=== PATIENT | female | born 1950 | race Caucasian/White ===

== ENCOUNTER 2019-10-30 10:13 | Outpatient (CLI) | payer MEDICARE, SELFPAY ==
--- NOTE | 2019-10-30 10:21 | MM_ITS ---
WS: [id number] BILATERAL DIGITAL SCREENING MAMMOGRAPHY WITH CAD CLINICAL INFORMATION: SCREENING HISTORY: Screening mammogram. No current complaints. COMPARISON: TECHNIQUE: Bilateral CC and MLO views. FINDINGS: Scattered fibroglandular densities bilaterally. No suspicious focal mass, asymmetry, calcifications, or architectural distortion. No evidence of malignancy. Secretory calcifications left breast. MM/[place] [id number] IMPRESSION: BI-RADS: 2-Benign FOLLOW UP: 1 Year Follow-up Recommend return to annual screening mammography.
== END 2019-10-30 10:14 | disposition home or self-care (01) ==
LOC: RADSHAW 10:20
PROVIDERS: PCP Family Medicine; Visit Provider Obstetrics & Gynecology
DX: Z12.31 Encounter for screening mammogram for malignant neoplasm of breast (principal)
CPT/HCPCS: 77067

== ENCOUNTER 2020-04-30 00:32 | Emergency (ER) | payer MEDICARE, SELFPAY ==
[2020-04-30 00:39] VITALS: BP 168/78; PULSE 81; RESP 18; TEMP 36.8; O2SAT 97; BMI 31.1
[2020-04-30] MEDS: metoclopramide 5 mg/mL SDV 2 mL 10 MG IVP (00:59)
[2020-04-30] MEDS: diphenhydrAMINE 50 mg/mL SDV 1mL IVP (00:59)
[2020-04-30] MEDS: tetracaine 0.5% Op Soln 4 mL Btl 1 DROP EYE-LEFT (01:01)
[2020-04-30 01:07] VITALS: BP 168/76; PULSE 84; RESP 19; O2SAT 94
--- NOTE | 2020-04-30 01:22 | ED_ITS ---
HPI - Eye Problem General: Chief complaint: Eye Problems Stated complaint: Headache, drainage from eye post surgery this morn Time Seen by Provider: 04/30/20 00:36 Source: patient Mode of arrival: ambulatory Limitations: no limitations History of Present Illness: HPI Narrative: 70-year-old female who states she has a history of glaucoma. Patient states she had a procedure today for her glaucoma by Dr. Bell. She states that throughout the day she had worsening headache and pain in the eye. States headache is sharp in nature and rates it a 9 out of 10. States she did have one episode of vomiting. Denies any worsening improving factors. chief complaint: eye pain Onset (ago): hour(s) Onset description: gradual Duration: constant Location: left eye Place: home Associated symptoms: Denies fever(s), headache(s), nausea, neck pain or vomiting Review of Systems Const: Denies: fever(s), chills, body aches or change in appetite Eyes: Reports: eye discomfort; Denies: blurry vision ENMT: Denies: throat pain or dental pain Card: Denies: chest pain Resp: Denies: dyspnea GI: Denies: abdominal pain, nausea, vomiting or diarrhea : Denies: dysuria Musc: Denies: neck pain or back pain Skin/Breast: Denies: rash Neuro: Denies: headache(s) Psych: Denies: depression Rodrick/Lymph: Denies: easy bruising All/Imm: Denies: urticaria PFSH ED PFSH: Medical History (Updated 04/30/20 @ 03:42 by Radha House MD) Arthritis Had arthritic pain in the past however in the last year since exercising and changing her food symptoms have improved and she is no longer on any pain medications since 2019 Chronic hypertension Diagnosed in 2011 or 2012 and is well controlled with medication. Managed by PMD Glaucoma Status post 2 surgeries for glaucoma last in 2019 and is using eyedrops for this. No pertinent past medical history Denies diabetes, asthma, seizures, DVT/PE PCP: Dr. Castaneda Surgical History (Updated 02/06/20 @ 09:47 by Carolina Daigle MD) History of back surgery [id number]: Laminectomy, Perfomed in [place] S/P eye surgery x 2 Bilateral; 2004-performed in [place] for glaucoma per patient Bilateral-left in October 2019 and right in November [address] Bell in [place] per patient stents were placed for glaucoma S/P tubal ligation Done in 1969 by suprapubic incision as an interval procedure Family History (Updated 02/05/20 @ 11:48 by Evelyn Barker, RN) Mother Stroke Heart disease Hypertension Hyperlipidemia Father Heart disease Hypertension Hyperlipidemia Thyroid condition Brother Heart disease x 2 Hypertension x5 Diabetes Hyperlipidemia x 5 Sister Hypertension Hyperlipidemia Family/Other Breast cancer paternal aunt, diagnosed in her 70s Son Sarcoma Denies family history of Colon cancer Ovarian cancer Anesthesia complication Bleeding disorder Uterine cancer Physical Exam Const: COMMON NORMALS: no acute distress, patient oriented x3 and healthy appearing HENMT: COMMON NORMALS: normocephalic and atraumatic HEAD & SCALP: normocephalic and atraumatic Eye: COMMON NORMALS: EOMs intact bilaterally OTHER: Patient's left pupil is dilated. Does respond to light with some slight constriction Neck/C-Spine: COMMON NORMALS: full ROM and supple Chest: COMMONS NORMALS: normal inspection of the chest and normal palpation of entire chest wall Resp: COMMON NORMALS: normal respiratory effort, No retractions, No use of accessory muscles and clear to auscultation bilaterally AUSCULTATION: clear to auscultation bilaterally Cardio: COMMON NORMALS: regular rate, regular rhythm and No murmurs present (Cardio) RATE: regular rate RHYTHM: regular rhythm GI: COMMON NORMALS: Normal to inspection, nondistended, normoactive bowel sounds present, Soft to palpation, non-tender and no masses PALPATION: Yes Soft to palpation Extremity: COMMON NORMALS: normal to inspection and full ROM Neuro: COMMON NORMALS: patient oriented x3, moves all extremities and no focal motor deficits Psych: COMMON NORMALS: mental status grossly normal, Normal thought process present and cooperative THOUGHT PROCESS: Normal thought process present Skin: COMMON NORMALS: no rashes or lesions noted and no wounds GENERAL SKIN EXAM: no rashes or lesions noted Course Reevaluation(s): Reevaluation #1: Intraocular pressures measured at 55 and 56 mm per mercury. I am concerned of possible angle-closure glaucoma and I spoke to Dr. Bell of ophthalmology who recommended giving patient Diamox along with Timoptic and latanoprost along with mannitol. He wants me to recheck the intraocular pressure in 1 hour and let him know the results at that time. Time: 01:22 Reevaluation #2: Dr. Bell seen here in the ER and is evaluated the patient with slit lamp. He is can come back and check intraocular pressures as well. Time: 02:07 Vital Signs: Vital signs: Vital Signs Temperature 98.2 F 04/30/20 00:39 Pulse Rate 79 04/30/20 03:56 Respiratory Rate 16 04/30/20 03:56 Blood Pressure 151/79 04/30/20 03:56 Pulse Oximetry 93 04/30/20 03:56 MDM - Eye Problem MDM Narrative: Medical decision making narrative: Patient presents here with glaucoma. Patient is seen down the ER by Dr. Bell. He expressed some fluid to drain he had placed earlier today. Repeat pressures were 48 and 50. She feels improved. Dr. Bell feels she is stable for discharge and does not believe she has acute angle glaucoma and is can see her in his office at 8 AM. Patient is to return if she has any increase of pain. Discharge Plan Discharge Patient Disposition: Home Clinical Impression: Glaucoma Qualifiers: Glaucoma type: unspecified Laterality: left Qualified Code(s): H40.9 - Unspecified glaucoma Condition: Stable Prescriptions: New ondansetron 4 mg tablet,disintegrating 4 mg PO Q6H PRN (Reason: nausea and vomiting) Qty: 14 RF: 0 No Action PreserVision AREDS [id number] capsule 1 cap PO BID RF: 0 hydrochlorothiazide 25 mg tablet 25 mg PO DAILY RF: 0 losartan 50 mg tablet 50 mg PO DAILY RF: 0 etodolac 200 mg capsule 100 mg PO BID PRNRF: 0 metoprolol tartrate [Lopressor] 50 mg tablet 50 mg PO DAILY RF: 0 atorvastatin 10 mg tablet 10 mg PO DAILY RF: 0 Zyrtec 10 mg capsule 10 mg PO DAILY RF: 0 fluticasone propionate [Flonase Allergy Relief] 50 mcg/actuation spray,suspension 1 spray INTRANASAL DAILY PRNRF: 0 Discharge Orders: Discharge ED (Routine); Ordered 04/30/20 Ordered By: Radha House Referrals: Sammy Bell MD [Physician] - Enzo Castaneda MD [Primary Care Provider] - Discharge Diet: Advance as tolerated Discharge Activity: Resume usual activity Patient Instructions: Glaucoma (ED) Coding Level of Care Code ED Appliance Installer for Chg Fwd Exam Comprehensive
[2020-04-30] MEDS: ondansetron 2 mg/ML SDV 2 mL 4 MG IVP (01:28)
--- NOTE | 2020-04-30 01:32 | PC.NURSE ---
visual acuity on patient performed by nurse. left eye undeterminable (only could see white board). right eye 20/200. both eyes 20/100.
[2020-04-30] MEDS: acetaZOLAMIDE 250 mg Tablet 500 MG PO (01:50)
[2020-04-30] MEDS: mannitol 12.5 gm/50 mL (25%) SDV IV (01:55)
[2020-04-30] MEDS: latanoprost 0.005% Op Soln 2.5 mL Btl 1 DROP EYE-LEFT (02:00)
[2020-04-30] MEDS: timolol 0.5% Op Soln 5 mL Btl 1 DROP EYE-RIGHT (02:07)
[2020-04-30 02:09] VITALS: PULSE 84; RESP 16; O2SAT 94
[2020-04-30 03:25] VITALS: BP 142/72; PULSE 78; RESP 16; O2SAT 94
--- NOTE | 2020-04-30 03:49 | P.CONIM_ITS ---
Providers/Reason For Consult Consulting Physican/Specialty*: PAMELA GURROLA OPHTHALMOLGY Reason for Consult*: ELEVATED IOP LEFT EYE Primary Care Provider: Enzo Castaneda MD History of Present Illness History of Present Illness Priti Shelton is a 70 year old female who had a revision of a Xen stent left eye yesterday, The procedure was uncomplicated and the IOP was 21 hours post op. She developed nausea and headache which caused her visit to the ER Meds/Allergies Home Medications and Allergies Home Medications Medication Instructions Recorded Confirmed Last Taken Type atorvastatin 10 mg tablet 10 mg PO DAILY 02/05/20 02/05/20 Unknown History cetirizine 10 mg capsule 10 mg PO DAILY cap 02/05/20 02/05/20 Unknown History etodolac 200 mg capsule 100 mg PO BID PRN cap 02/05/20 02/05/20 Unknown History fluticasone propionate 50 1 spray INTRANASAL DAILY PRN 02/05/20 02/05/20 Unknown History mcg/actuation nasal spray,suspension hydrochlorothiazide 25 mg tablet 25 mg PO DAILY 02/05/20 02/05/20 Unknown Hi story losartan 50 mg tablet 50 mg PO DAILY 02/05/20 02/05/20 Unknown History metoprolol tartrate 50 mg tablet 50 mg PO DAILY 02/05/20 02/05/20 Unknown History vitamins A,C,X-jggm-yjczqy 14,320 1 cap PO BID 02/05/20 02/05/20 Unknown History unit-226 mg-200 unit capsule ondansetron 4 mg PO Q6H PRN #14 tab 04/30/20 Unknown Rx Allergies Allergy/AdvReac Type Severity Reaction Status Date / Time lisinopril Allergy ADR-Cough Verified 04/30/20 00:39 brimonidine AdvReac palpitation, Verified 02/05/20 11:42 decreased blood pressure eye drop AdvReac eye Uncoded 02/05/20 11:42 swelling, rapid heart rate Current Medications Current Medications Generic Name Dose Route Start Last Admin Trade Name Freq PRN Reason Stop Dose Admin Mannitol 20 gm 04/30/20 01:30 04/30/20 01:55 Mannitol 12.5 Gm/50 Ml (25%) Sdv IV 20 gm ONCE FARZAD Administration PFSH Acute PFSH: Medical History (Updated 04/30/20 @ 03:42 by Radha House MD) Arthritis Had arthritic pain in the past however in the last year since exercising and changing her food symptoms have improved and she is no longer on any pain medications since 2019 Chronic hypertension Diagnosed in 2011 or 2012 and is well controlled with medication. Managed by PMD Glaucoma Status post 2 surgeries for glaucoma last in 2019 and is using eyedrops for this. No pertinent past medical history Denies diabetes, asthma, seizures, DVT/PE PCP: Dr. Castaneda Surgical History (Updated 02/06/20 @ 09:47 by Carolina Daigle MD) History of back surgery [id number]: Laminectomy, Perfomed in [place] S/P eye surgery x 2 Bilateral; 2004-performed in [place] for glaucoma per patient Bilateral-left in October 2019 and right in November [address] Gurrola in [place] per patient stents were placed for glaucoma S/P tubal ligation Done in 1969 by suprapubic incision as an interval procedure Family History (Updated 02/05/20 @ 11:48 by Evelyn Barker RN) Mother Stroke Heart disease Hypertension Hyperlipidemia Father Heart disease Hypertension Hyperlipidemia Thyroid condition Brother Heart disease x 2 Hypertension x5 Diabetes Hyperlipidemia x 5 Sister Hypertension Hyperlipidemia Family/Other Breast cancer paternal aunt, diagnosed in her 70s Son Sarcoma Denies family history of Colon cancer Ovarian cancer Anesthesia complication Bleeding disorder Uterine cancer Vitals/I&O/Wt Last Vital Signs Temp 98.2 F 04/30/20 00:39 Pulse 78 04/30/20 03:25 Resp 16 04/30/20 03:25 BP 142/72 04/30/20 03:25 Pulse Ox 94 04/30/20 03:25 Weight last 48 hrs Weight 170 lb Physical Exam Narrative: EXAM NARRATIVE: When I arrived she was no longer nauseated, but was still suffering from slight headache. She had been given diamox and was receiving mannitol IV. Latanoprost and Timotic had been ordered. Eye: OTHER: the conjunctival flap was intact but not significantly elevated. There was minimal injection, but the cornea was diffusely edematous. The chamber was similarly filled as the right eye with minimal pupillary reaction OU. Slit lamp showed the Xen to be in proper position inside and outside of the eye without pupillary irregularity suggestive of iris incarceration internally. Attempts to massage the conjunctiva from the external stent aperature were performed with a cotton tipped applicator. IOP measured fell 15 mm within 10 minutes. Consult Attestations Time Spent in Patient Care: Greater than 35 minutes once the IOP was falling it was jointly decided to allow her to return home with Zofran to be used prn, continue with the timoptic, and follow up in my office in 5 hours for repeated IOP check and decision making. Coding Level of Care Code Acute Shading Painter for Javier Paige
[2020-04-30 03:53] VITALS: BP 151/79; PULSE 80; RESP 16; O2SAT 94
[2020-04-30 03:56] VITALS: BP 151/79; PULSE 79; RESP 16; O2SAT 93
== END 2020-04-30 03:57 | disposition home or self-care (01) ==
PROVIDERS: Emergency Provider Emergency Medicine; PCP Family Medicine
DX: H40.9 Unspecified glaucoma (principal); I10 Essential (primary) hypertension
CPT/HCPCS: 12345; 96374; 96375; 99283; J1200; J2150; J2405; J2765

== ENCOUNTER 2020-11-26 07:45 | Outpatient (CLI) | payer MEDICARE, SELFPAY ==
--- NOTE | 2020-11-26 07:56 | MM_ITS ---
WS: [id number] BILATERAL DIGITAL SCREENING MAMMOGRAM WITH CAD CLINICAL INFORMATION: SCREENING HISTORY: Screening mammogram. No current complaints. COMPARISON: October 30, 2019 TECHNIQUE: Bilateral CC and MLO. FINDINGS: The breast are composed of extremely dense tissue, which can limit the detection of small underlying mass lesions. A few punctate and lucent centered calcifications. Secretory calcifications. No suspici ous focal mass, asymmetry, calcifications, or architectural distortion. No evidence of malignancy. MM/[place] [id number] IMPRESSION: BI-RADS: 2-Benign FOLLOW UP: 1 Year Follow-up Recommend return to annual screening mammography.
== END 2020-11-26 07:46 | disposition home or self-care (01) ==
LOC: RADSHAW 07:52
PROVIDERS: PCP Family Medicine; Visit Provider Obstetrics & Gynecology
DX: Z12.31 Encounter for screening mammogram for malignant neoplasm of breast (principal)
CPT/HCPCS: 77067

== ENCOUNTER 2021-05-16 10:00 | Outpatient (CLI) | payer MEDICARE, SELFPAY ==
--- NOTE | 2021-05-16 10:20 | XR_ITS ---
WS: [id number] Lumbar spine, 3 views, 05/16/2021 Clinical Data: LUMBAR BACK PAIN W/RADICULOPATHY Comparison: Lateral lumbar spine, 07/07/2015. Findings: There is degenerative disc narrowing at L5-S1. There is a 0.7 cm subluxation of L4 on L5. Anterior os teophyte formation from L2 through L5 is seen. There are no compression fractures. The transverse pro cesses and SI joints are intact. There is calcification in the wall of the abdominal aorta but no aneurysm. XR/XR lumbar spine 2-3V* [id number] Impression: 1. Degenerative disc narrowing at L5-S1. 2. 0.7 cm subluxation of L4 on L5. 3. 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
== END 2021-05-16 10:01 | disposition home or self-care (01) ==
PROVIDERS: PCP Family Medicine; Visit Provider Family Medicine
DX: M54.16 Radiculopathy, lumbar region (principal); S33.140A Subluxation of L4/L5 lumbar vertebra, initial encounter; M47.816 Spondylosis without myelopathy or radiculopathy, lumbar region
CPT/HCPCS: 72100

== ENCOUNTER → 2023-02-01 10:09 | Outpatient (BNVA) | payer MEDICARE, SELFPAY | PROVIDERS: PCP Family Medicine; Visit Provider Family Medicine | DX: Z51.81 Encounter for therapeutic drug level monitoring (principal); I10 Essential (primary) hypertension; R25.2 Cramp and spasm; E55.9 Vitamin D deficiency, unspecified; E53.8 Deficiency of other specified B group vitamins; R73.09 Other abnormal glucose; Z13.1 Encounter for screening for diabetes mellitus; Z78.0 Asymptomatic menopausal state; Z00.00 Encounter for general adult medical examination without abnormal findings; Z13.220 Encounter for screening for lipoid disorders | CPT/HCPCS: 80053; 80061; 82306; 82607; 83036; 83735; 85025 ==

== ENCOUNTER 2023-02-12 13:11 | Outpatient (CLI) | payer MEDICARE, SELFPAY ==
--- NOTE | 2023-02-12 | XR_ITS ---
WS: [id number] DEXA (DUAL ENERGY X-RAY ABSORPTIOMETRY) Bone mineral density was performed using a [employer] machine. HISTORY: Postmenopausal - Bone density screening COMPARISON: 10/03/2016 Lumbar spine BMD (L1-L4): 1.282 g/cm2 T score: 0.9 Z score: 2.1 Total hip BMD: Left: 1.098 g/cm2. T score: 0.7 Z score: 2.0 Right: 1.071 g/cm2. T score: 0.5 Z score: 1.8 10 year probability of a major osteoporotic fracture is 17.8%. Compared to the prior study from 10/03/2016. Lumbar spine bone mineral density has increased by 3.8%. Bilateral hips bone mineral density has decreased by 5.0%. IMPRESSION: NORMAL BONE MINERAL DENSITY based upon the WHO classification for females. Significant decrease in bone mineral density within the hips since the prior study. Significant increase in bone mineral density within the lumbar spine since the last study.
== END 2023-02-12 13:12 | disposition home or self-care (01) ==
PROVIDERS: PCP Family Medicine; Visit Provider Family Medicine
DX: Z13.820 Encounter for screening for osteoporosis (principal); Z78.0 Asymptomatic menopausal state
CPT/HCPCS: 77080

== ENCOUNTER 2023-02-20 11:06 | Outpatient (CLI) | payer MEDICARE, SELFPAY ==
--- NOTE | 2023-02-20 11:11 | MM_ITS ---
WS: [id number] BILATERAL 3D TOMOSYNTHESIS DIGITAL SCREENING MAMMOGRAPHY WITH CAD CLINICAL INFORMATION: Screening mammogram HISTORY: Screening mammogram. No current complaints. COMPARISON: 2020 TECHNIQUE: Bilateral CC and MLO views. FINDINGS: Scattered fibroglandular densities bilaterally. No suspicious focal mass, asymmetry, calcifications, or architectural distortion. No evidence of malignancy. Incidental punctate and lucent centered calci fications. Secretory calcifications. Vascular calcification. IMPRESSION: MM/[place] [id number] BI-RADS: 2-Benign FOLLOW UP: 1 Year Follow-up Recommend return to annual screening mammography.
== END 2023-02-20 11:07 | disposition home or self-care (01) ==
PROVIDERS: PCP Family Medicine; Visit Provider Family Medicine
DX: Z12.31 Encounter for screening mammogram for malignant neoplasm of breast (principal)
CPT/HCPCS: 77063; 77067

== ENCOUNTER → 2024-02-04 09:41 | Outpatient (BNVA) | payer MEDICARE, SELFPAY | PROVIDERS: PCP Family Medicine; Visit Provider Family Medicine | DX: Z51.81 Encounter for therapeutic drug level monitoring (principal); E55.9 Vitamin D deficiency, unspecified; I10 Essential (primary) hypertension; R73.09 Other abnormal glucose; E53.8 Deficiency of other specified B group vitamins | CPT/HCPCS: 80053; 80061; 82306; 82607; 83036; 85025 ==

== ENCOUNTER 2024-02-22 11:59 | Outpatient (CLI) | payer MEDICARE, SELFPAY ==
--- NOTE | 2024-02-22 12:04 | MM_ITS ---
WS: [id number] BILATERAL 3D TOMOSYNTHESIS DIGITAL SCREENING MAMMOGRAPHY WITH CAD CLINICAL INFORMATION: SCREENING HISTORY: Screening mammogram. No current complaints. COMPARISON: 2022 TECHNIQUE: Bilateral CC and MLO views. FINDINGS: Scattered fibroglandular densities bilaterally. No suspicious focal mass, asymmetry, calcifications, or architectural distortion. No evidence of malignancy. A few incidental punctate and secretory calci fications. MM/MM scr tomosynthesis [id number] IMPRESSION: DENSITY: There are scattered areas of fibroglandular density. BI-RADS: 2 - Benign. FOLLOW UP: 1 Year Follow-up Recommend return to annual screening mammography.
== END 2024-02-22 12:00 | disposition home or self-care (01) ==
LOC: RAD 12:00
PROVIDERS: PCP Family Medicine; Visit Provider Family Medicine
DX: Z12.31 Encounter for screening mammogram for malignant neoplasm of breast (principal); R92.323 Mammographic fibroglandular density, bilateral breasts; R92.1 Mammographic calcification found on diagnostic imaging of breast
CPT/HCPCS: 77063; 77067

== ENCOUNTER → 2024-04-08 13:04 | Outpatient (BNVA) | payer MEDICARE, SELFPAY | PROVIDERS: PCP Family Medicine; Visit Provider Nurse Practitioner Women's Health | DX: N83.209 Unspecified ovarian cyst, unspecified side (principal) | CPT/HCPCS: 76830 ==

== ENCOUNTER 2024-09-30 09:16 | Outpatient (CLI) | payer MEDICARE, SELFPAY ==
--- NOTE | 2024-09-30 09:22 | XRR_ITS ---
PROCEDURE INFORMATION: Exam: XR Lumbosacral Spine Exam date and time: 09/30/2024 9:29 AM Age: 74 years old Clinical indication: Low back pain; Prior surgery; Surgery date: 1-6 months; Surgery type: Disk surgery l4 l5; Additional info: Lumbar radiculopathy left TECHNIQUE: Imaging protocol: Radiologic exam of the lumbosacral spine. Views: 2 or 3 views. COMPARISON: CR XR lumbar spine 2-3V* [id number] 05/16/2021 10:30 AM FINDINGS: Bones/joints: There is partial sacralization of the L5 body. Grade 1 anterolisthesis of L4 on L5. [id number] multilevel degenerative disc disease throughout the lumbar spine. Vertebral body heights are preserved. Minimal curvature of the lumbar spine convex to the right. Degenerative facet hypertrophy at L4-L5 and L5-S1. Soft tissues: Unremarkable. XR/XR lumbar spine 2-3V* [id number] IMPRESSION: Degenerative changes of the lumbar spine.
--- NOTE | 2024-09-30 09:22 | XRR_ITS ---
PROCEDURE INFORMATION: Exam: XR Left Hip Exam date and time: 09/30/2024 9:29 AM Age: 74 years old Clinical indication: Hip pain; Left hip; Additional info: Left hip pain TECHNIQUE: Imaging protocol: Radiologic exam of the left hip. Views: 2 or 3 views hip with pelvis when performed. COMPARISON: CR XR lumbar spine 2-3V* [id number] 09/30/2024 9:29 AM FINDINGS: Bones/joints: Mild osteoarthrosis of the left hip. No fractures or dislocations. Soft tissues: There are amorphous calcifications projecting over the left inferior pubic ramus and in the more inferior soft tissues. XR/XR hip LT 2-3V wo/w pel* [id number] IMPRESSION: 1. No acute findings. 2. Soft tissue calcifications as described of unclear etiology. This could be secondary to contrast material or dystrophic soft tissue calcifications.
== END 2024-09-30 09:17 | disposition home or self-care (01) ==
PROVIDERS: PCP Family Medicine; Visit Provider Family Medicine
DX: M16.12 Unilateral primary osteoarthritis, left hip (principal); M51.16 Intervertebral disc disorders with radiculopathy, lumbar region; M47.26 Other spondylosis with radiculopathy, lumbar region
CPT/HCPCS: 72100; 73502

== ENCOUNTER 2024-10-09 09:51 | Outpatient (CLI) | payer MEDICARE, SELFPAY ==
--- NOTE | 2024-10-09 10:15 | MR_ITS ---
WS: [id number] MRI LUMBAR SPINE NONCONTRAST HISTORY: Lumbar radiculopathy, LEFT thigh pain. Prior lumbar surgery. COMPARISON: 06/18/2015 TECHNIQUE: Sagittal and axial multisequence imaging is submitted. L4 anterolisthesis by 6.7 mm with slight progression since 06/18/2025. No acute fracture or marrow edema. Disc spaces are all narrowed and desiccated. Large clawlike osteophyte bridging anteriorly from L5-S1. Conus terminates normally at L1-2 disc level. T12-L1: Disc bulging with small disc protrusion. Marked ligamentum flavum and facet arthritis. Mild bilateral foraminal stenosis. L1-L2: Bilateral facet arthritis. Mild encroachment into the thecal sac. L2-L3: Mild annular disc bulging with osteophytic ridging and facet arthritis. Mild facet joint encroachment upon the thecal sac. LEFT foraminal disc protrusion. Mild central, subarticular recess and foraminal stenosis, LEFT greater than RIGHT. L3-L4: Marked annular disc bulge with a large central to LEFT paracentral and foraminal disc protrusion. Disc protrusion extends into the LEFT subarticular recess with deformity of the thecal sac and posterior displacement of the nerve roots. There is significant contact on the traversing LEFT L4 nerve root. Lesser displacement of the RIGHT L4 nerve root. Marked facet joint arthropathy with mild LEFT foraminal stenosis. L4-L5: Diffuse annular disc bulging with mild osteophytic ridging. Moderate ligamentum flavum and facet arthritis. Fluid in the facet joints. Severe central, bilateral subarticular recess and mild foraminal stenosis. L5-S1: Diffuse osteophytic ridging with mild encroachment upon the subarticular recesses. Mild facet joint arthritis. Mild bilateral foraminal stenosis, RIGHT greater than LEFT. Osteophyte in the RIGHT foramen contacts the exiting RIGHT L5 nerve root. Minimal progression since the prior study. No adrenal mass. Paraspinal soft tissues are negative. MR/MR lumbar spine wo con* [id number] IMPRESSION: 1. Overall mild progression of degenerative changes within the lumbar spine an d stenosis. 2. L3-4: Large central to LEFT paracentral and foraminal disc protrusion with significant contact on the thecal sac and traversing LEFT L4 nerve root. Lesser contact on the RIGHT L4 nerve root. Marked facet joint arthritis at L3-4 and m ild LEFT foraminal stenosis. 3. L4-5: Severe central, bilateral subarticular recess and mild foraminal sten osis. 4. Grade 1 anterolisthesis of L4. 5. Mild bilateral foraminal stenosis, RIGHT greater than LEFT. Osteophyte in t he RIGHT foramen contacts the exiting RIGHT L5 nerve root. Similar to the prior study. 6. T12-L1 L: Mild foraminal stenosis. 7. L2-3: Small LEFT foraminal disc protrusion. Mild central, subarticular rece ss and foraminal stenosis, LEFT greater than RIGHT.
== END 2024-10-09 09:52 | disposition home or self-care (01) ==
LOC: RAD 09:52
PROVIDERS: PCP Family Medicine; Visit Provider Family Medicine
DX: M51.16 Intervertebral disc disorders with radiculopathy, lumbar region (principal); M48.061 Spinal stenosis, lumbar region without neurogenic claudication; M48.04 Spinal stenosis, thoracic region; M25.78 Osteophyte, vertebrae
CPT/HCPCS: 72148

== ENCOUNTER → 2024-10-23 10:14 | Outpatient (BNVA) | payer MEDICARE, SELFPAY | PROVIDERS: PCP Family Medicine; Visit Provider Orthopaedic Surgery | DX: M54.16 Radiculopathy, lumbar region (principal); M48.062 Spinal stenosis, lumbar region with neurogenic claudication | CPT/HCPCS: 36415; 72110; 80053; 81001; 85025; 99204 ==

== ENCOUNTER → 2024-10-31 11:07 | Outpatient (BNVA) | payer MEDICARE, SELFPAY | PROVIDERS: PCP Family Medicine; Visit Provider Family Medicine | DX: Z01.818 Encounter for other preprocedural examination (principal) | CPT/HCPCS: 93005 ==

== ENCOUNTER → 2024-11-03 10:07 | Outpatient (BNVA) | payer MEDICARE, SELFPAY | PROVIDERS: PCP Family Medicine; Visit Provider Family Medicine | DX: Z01.818 Encounter for other preprocedural examination (principal) | CPT/HCPCS: 81003; 87077; 87086; 87184 ==

== ENCOUNTER 2024-11-05 07:45 | Day surgery (SDC) | payer MEDICARE, SELFPAY ==
[2024-11-05] VITALS (12 sets, daily range): BP systolic 85–161; BP diastolic 58–79; PULSE 70–77; RESP 16–18; TEMP 36.1–36.6; O2SAT 92–100; BMI 31.4
--- NOTE | 2024-11-05 08:19 | ANES.PREANE2 ---
Pre-Anesthetic Assessment Height/Weight: Height 5 ft 2 in Weight 172 lb Temp Pulse Resp BP Pulse Ox O2 Del Method 97.1 F L 72 18 161/74 96 Room Air 11/05/24 08:03 11/05/24 08:03 11/05/24 08:03 11/05/24 08:03 11/05/24 08:03 11/05/24 08:03 Preop Diagnosis: Lumbar stenosis with neurogenic claudication Operation Date: 11/05/24 09:25 Proposed Procedures p Lumbar Spine Decompression(Not Applicable) - Jacky Gilbert, DO Was Beta Carmita taken within 24 hours: Yes Was Clonidine taken within 24 hours: N/A Last intake: Intake Last Liquid Date 11/04/24 Last Liquid Time 19:00 Last Solid Date 11/04/24 Last Solid Time 19:00 Social No alcohol and No tobacco Exam alert, oriented x 3, clear to auscultation bilaterally and regular rate & rhythm Airway Submandibular: within normal limits Cervical ROM: within normal limits Mallampati: Class III Dentition: partials Anesthetic Plan ASA status: 3 Anesthesia: General Other: History of PONV, refractory NPO since yesterday evening History of hypertension, on losartan, hydrochlorothiazide, and metoprolol. Preop BP 161/74 Denies any pulmonary issues Recent labs 10/23/2024 reviewed acceptable for procedure, K+ 3.3 at that time Plan for GETA Medications/Allergies Home Medications ?Medication ?Instructions ?Recorded ?Confirmed ?Last Taken ?Type vitamins A,C,Y-phxi-wmpmaw 4,296 1 cap PO BID 02/05/20 11/04/24 10/28/24 History mcg-226 mg-90 mg capsule (PreserVision AREDS) vitamin B complex (B 1 tab PO DAILY 03/20/22 11/04/24 10/28/24 History Complex-Vitamin B12 tablet) cholecalciferol (vitamin D3) 50 50 mcg PO DAILY 02/13/23 11/04/24 10/28/24 History mcg (2,000 unit) capsule etodolac 400 mg tablet 200 mg (1/2 x 400 mg) PO BID #90 06/17/24 11/04/24 10/31/24 Rx tabs hydrochlorothiazide 25 mg tablet 25 mg PO DAILY #90 tabs 06/17/24 11/04/24 11/04/24 Rx metoprolol tartrate 50 mg tablet 50 mg PO DAILY #90 tabs 06/17/24 11/04/24 11/03/24 Rx (Lopressor) fluticasone propionate 50 1 spray intranasal DAILY #16 grams 09/22/24 11/04/24 11/03/24 Rx mcg/actuation nasal spray,suspension (Flonase Allergy Relief) atorvastatin 10 mg tablet 10 mg PO DAILY 11/04/24 11/04/24 11/04/24 History losartan 50 mg tablet 100 mg PO DAILY 11/04/24 11/04/24 11/04/24 History sulfamethoxazole 800 1 tab PO BID 5 days #10 tabs 11/04/24 11/04/24 11/04/24 Rx mg-trimethoprim 160 mg tablet (Bactrim DS) Allergies Allergy/AdvReac Type Severity Reaction Status Date / Time lisinopril Allergy ADR-Cough Verified 10/31/24 11:22 brimonidine AdvReac palpitation, Verified 10/31/24 11:22 decreased blood pressure eye drop AdvReac eye Uncoded 10/31/24 11:22 swelling, rapid heart rate Current Medications Generic Name Dose Route Start Last Admin Trade Name Freq PRN Reason Stop Dose Admin Sodium Chloride 1,000 mls @ 30 mls/hr 11/05/24 08:00 11/05/24 08:16 Sodium Chloride 0.9% IV 11/06/24 07:59 30 mls/hr .Q24H FARZAD Administration PFSH Anesthesia Medical History Hypercholesteremia Diagnosed in 2014 and controlled on medication managed by her primary care provider Chronic hypertension Diagnosed in 2011 or 2012 and is well controlled with medication. Managed by PMD Arthritis Had arthritic pain in the past however in the last year since exercising and changing her food symptoms have improved and she is no longer on any pain medications since 2019 Glaucoma Status post 2 surgeries for glaucoma last in 2019 and is using eyedrops for this. No pertinent past medical history Denies diabetes, asthma, seizures, DVT/PE PCP: Dr. Castaneda Surgical History S/P eye surgery This manx 4 Bilateral; 2004-performed in [place] for glaucoma per patient Bilateral-left in October 2019 and right in November [address] Bell in [place]-'s per patient stents were placed for glaucoma 2020---- replacement of eye stent complications with this being managed by Dr. Bell 2023 - Laser surgery (for wrinkle in eye) History of back surgery [id number]: Laminectomy, Perfomed in [place] S/P tubal ligation Done in 1969 by suprapubic incision as an interval procedure Family History Mother Stroke Heart disease Hypertension Hyperlipidemia Father Heart disease Hypertension Hyperlipidemia Thyroid disease Brother Heart disease x 4 Hypertension x5 Diabetes Hyperlipidemia x 5 Sister Hypertension Hyperlipidemia Family/Other Breast cancer paternal aunt, diagnosed in her 70s Son Sarcoma Denies family history of Colon cancer Ovarian cancer Anesthesia complication Bleeding disorder Uterine cancer Social History Smoking and tobacco/nicotine status: never used tobacco/nicotine Quit status (tobacco/nicotine): has quit using Former quit date comment: 10 pack year history Alcohol intake: never Substance/Drug Use: never Additional social history: Moved here from [place] Marital status: Marital status details: Tone Shelton
--- NOTE | 2024-11-05 09:11 | W.PM.OPSUD ---
Surgery/Procedure H&P Update DATE OF PROCEDURE: November 05, 2024 DATE H&P PERFORMED: 10/23/24 H&P UPDATE INFORMATION: I have reviewed H&P completed within last 30 days, I have examined patient prior to procedure and No changes to prior documentation PREOP DIAGNOSIS: Lumbar stenosis with neurogenic claudication PLANNED PROCEDURE: Operation Date: 11/05/24 09:25 Proposed Procedures p Lumbar Spine Decompression(Not Applicable) - Jacky Gilbert DO
[2024-11-05] MEDS: ceFAZolin 2,000 mg SDV 2000 MG IVP (09:30)
[2024-11-05] MEDS: lidocaine-epi 2% PF 1:200,000 20 mL SDV XX (09:54)
--- NOTE | 2024-11-05 11:11 | PM.OP ---
Operative Report Date of procedure: November 05, 2024 Pre-op diagnosis: Lumbar stenosis with neurogenic claudication L4-5 spondylolisthesis L3-4 herniated disc with radiculopathy Post-op diagnosis: same Procedure done: 1. L3/4 laminectomy with partial facetectomy and discectomy 2. L4/5 laminectomy with partial facetectomy Surgeon: Jacky Gilbert DO Estimated blood loss (mL): 25 Procedure: 1. L3/4 laminectomy with partial facetectomy and discectomy 2. L4/5 laminectomy with partial facetectomy Patient is brought to the operative suite. After undergoing anesthesia they are placed in the prone position. All areas of impingement are well padded. Patient is then prepped and draped in the normal sterile fashion. A skin incision is made over the L3/4 level. This is confirmed under c-arm guidance. A series of dilators are passed and the tubular retractor is docked on the L3 lamina. A bovie is used to clear the soft tissue off the lamina and the L 3/4 facet joint. A high speed elton is then used to perform the laminectomy and take down the medial aspect of the L 3/4 facet joint. A kerrison rongeure was then used to take down the remaining lamina and smooth the edge of the laminectomy up to the point where the ligamentum flavum attaches. Attention was then brought to the medial aspect of the facet joint. The remaining medial aspect of the superior and inferior aspect of the facet joint were taken down with the kerrison from the pedicle of L3 to L 4. The facet joint had significant hypertrophy. Attention was then brought to the Ligamentum Flavum. The ligament was taken down from the lamina of L3 to L4 and out medially to the remaining facet joint. The ligament was thick. The dura was then exposed. The dura was in good repair. L4 nerve root was reflected medially. The disc herniation was removed this was done using a curved curette and micropituitary. The nerve root was retracted with a D'Errico retractor. Multiple fragments were removed the space was irrigated and micropituitary was used to remove these fragments. The L3 nerve was then traced with a curette out the L3/4 foramen and found to be adequately decompressed. The L4 nerve was traced with a curette around the L4 pedicle. The lateral recess was opened with a kerrison helping to further decompress the L4 nerve. Wound is then irrigated copiously with saline and surgiflo is used to stop any bleeding. The tubular retractor is removed and the A skin incision is made over the L4/5 level. This is confirmed under c-arm guidance. A series of dilators are passed and the tubular retractor is docked on the L4 lamina. A bovie is used to clear the soft tissue off the lamina and the L 4/5 facet joint. A high speed elton is then used to perform the laminectomy and take down the medial aspect of the L 4/5 facet joint. A kerrison rongeure was then used to take down the remaining lamina and smooth the edge of the laminectomy up to the point where the ligamentum flavum attaches. Attention was then brought to the medial aspect of the facet joint. The remaining medial aspect of the superior and inferior aspect of the facet joint were taken down with the kerrison from the pedicle of L4 to L 5. The facet joint had significant hypertrophy. Attention was then brought to the Ligamentum Flavum. The ligament was taken down from the lamina of L4 to L5 and out medially to the remaining facet joint. The ligament was thick. The dura was then exposed. The dura was in good repair. The L4 nerve was then traced with a curette out the L4/5 foramen and found to be adequately decompressed. The L5 nerve was traced with a curette around the L5 pedicle. The lateral recess was opened with a kerrison helping to further decompress the L5 nerve. Wound is then irrigated copiously with saline and surgiflo is used to stop any bleeding. The tubular retractor is removed and the wound is closed with vicryl and monocryl suture. Steri strips were applied. A sterile dressing is then placed. Patient was then placed in the supine position and transferred to the PACU in stable condition.
--- NOTE | 2024-11-05 13:08 | ANE.PACU2 ---
Inpatient post-anesthesia follow up: Airway intact: Yes Vital signs: Temperature 97.8 F Pulse Rate 72 Respiratory Rate 18 Blood Pressure 102/63 Pulse Oximetry 100 Oxygen Delivery Me thod Room Air Oxygen Flow Rate Fraction of Inspir ed Oxygen Hydration adequate: Yes Nausea and vomiting: No Pain level: 1 Mental status: Baseline
--- NOTE | 2024-11-05 14:41 | XR_ITS ---
WS: [id number] XR lumbar spine 1V [id number] REASON FOR EXAM: or pic, decompression FINDINGS: Surgical instrument overlying the left L4-L5 interspace. XR/XR lumbar spine 1V [id number] IMPRESSION: Intraoperative lumbar level localization as above.
== END 2024-11-05 13:24 | disposition home or self-care (01) ==
PROVIDERS: PCP Family Medicine; Visit Provider Orthopaedic Surgery
PROC: (CPT 63005; principal; 2024-11-05 09:05)
DX: M48.062 Spinal stenosis, lumbar region with neurogenic claudication (principal); M43.16 Spondylolisthesis, lumbar region; M51.16 Intervertebral disc disorders with radiculopathy, lumbar region; I10 Essential (primary) hypertension; M19.90 Unspecified osteoarthritis, unspecified site
CPT/HCPCS: 63030; 63035; 72020; 76000; J0131; J0690; J1100; J1200; J1885; J2405; J2704; J3010; J3490; J7030; J9999

== ENCOUNTER → 2024-11-18 08:22 | Outpatient (BNVA) | payer MEDICARE, SELFPAY | PROVIDERS: PCP Family Medicine; Visit Provider Orthopaedic Surgery | DX: Z98.890 Other specified postprocedural states (principal) | CPT/HCPCS: 99024 ==

== ENCOUNTER → 2024-12-02 07:47 | Outpatient (BNVA) | payer MEDICARE, SELFPAY | PROVIDERS: PCP Family Medicine; Visit Provider Orthopaedic Surgery | DX: Z98.890 Other specified postprocedural states (principal) | CPT/HCPCS: 99024 ==

== ENCOUNTER → 2025-01-15 15:16 | Outpatient (BNVA) | payer MEDICARE, SELFPAY | PROVIDERS: PCP Family Medicine; Visit Provider Orthopaedic Surgery | DX: Z98.890 Other specified postprocedural states (principal) | CPT/HCPCS: 99024 ==

== ENCOUNTER → 2025-02-04 10:13 | Outpatient (BNVA) | payer MEDICARE, SELFPAY | PROVIDERS: PCP Family Medicine; Visit Provider Family Medicine | DX: Z00.00 Encounter for general adult medical examination without abnormal findings (principal); Z13.6 Encounter for screening for cardiovascular disorders; R73.09 Other abnormal glucose; E55.9 Vitamin D deficiency, unspecified; Z51.81 Encounter for therapeutic drug level monitoring | CPT/HCPCS: 80053; 80061; 82306; 83036; 85025 ==

== ENCOUNTER 2025-02-17 10:20 | Outpatient (CLI) | payer MEDICARE, SELFPAY ==
--- NOTE | 2025-02-17 10:24 | XR_ITS ---
WS: [id number] Exam: XR hip RT 2-3V wo/w pel* [id number] Date/Time of Exam: 02/17/2025 10:46 AM Reason For Exam: Right hip pain No acute fracture. Mild degenerative change of the joint compartment. Amorphous calcification is seen along the inferior RIGHT pubic ramus which may indicate dystrophic calcification within the musculature. XR/XR hip RT 2-3V wo/w pel* [id number] IMPRESSION: 1. No fracture. Mild DJD.
== END 2025-02-17 10:21 | disposition home or self-care (01) ==
LOC: RAD 10:21
PROVIDERS: PCP Family Medicine; Visit Provider Family Medicine
DX: M16.11 Unilateral primary osteoarthritis, right hip (principal); M89.8X8 Other specified disorders of bone, other site
CPT/HCPCS: 73502

== ENCOUNTER 2025-02-23 07:53 | Outpatient (CLI) | payer MEDICARE, SELFPAY ==
--- NOTE | 2025-02-23 08:00 | MM_ITS ---
WS: [id number] BILATERAL SCREENING DIGITAL TOMOSYNTHESIS MAMMOGRAM WITH CAD HISTORY: Screening COMPARISON: 02/22/2024, 02/20/2023, 10/08/2017 Bilateral CC and MLO views with tomosynthesis and synthetic mammography submitted. Computer aided detection analyzed. Breast composition: There are scattered areas of fibroglandular density. No suspicious masses, microcalcifications or architectural distortion. Benign calcifications in each breast. Scattered asymmetries are stable. MM/MM scr tomosynthesis [id number] IMPRESSION: BI-RADS: 2 - Benign. FOLLOW UP: 1 Year Follow-up
== END 2025-02-23 07:54 | disposition home or self-care (01) ==
LOC: RAD 07:56
PROVIDERS: PCP Family Medicine; Visit Provider Family Medicine
DX: Z12.31 Encounter for screening mammogram for malignant neoplasm of breast (principal); Z00.00 Encounter for general adult medical examination without abnormal findings; R92.323 Mammographic fibroglandular density, bilateral breasts; R92.1 Mammographic calcification found on diagnostic imaging of breast
CPT/HCPCS: 77063; 77067

== ENCOUNTER → 2025-02-25 08:20 | Outpatient (BNVA) | payer MEDICARE, SELFPAY | PROVIDERS: PCP Family Medicine; Visit Provider Student in an Organized Health Care Education/Training Program | DX: M25.551 Pain in right hip (principal); M25.552 Pain in left hip; M70.62 Trochanteric bursitis, left hip | CPT/HCPCS: 20610; 73523; 99204; J3301; J3490; J9999 ==